=== PATIENT | female | born 1955 | race Caucasian/White ===

== ENCOUNTER 2016-11-02 20:46 | Emergency (ER) | payer OTHER | END 2016-11-02 22:39 | disposition home or self-care (01) | LOC: ER1 20:46 | DX: S80.872A Other superficial bite, left lower leg, initial encounter (principal); S70.211A Abrasion, right hip, initial encounter; E11.9 Type 2 diabetes mellitus without complications; I10 Essential (primary) hypertension; Z23 Encounter for immunization; Z79.82 Long term (current) use of aspirin; Z79.899 Other long term (current) drug therapy; W54.0XXA Bitten by dog, initial encounter | CPT/HCPCS: 82962; 90471; 90715; 99283 ==

== ENCOUNTER → 2020-08-29 | Outpatient (CLI) | payer OTHER ==
[~2020-08-29] MED LIST: ALLEGRA ALLERG180 MG PO; AMLODIPINE BESYL5 MG PO; ASPIR 8181 MG PO; ASPIRIN EC81 MG PO; BENTYL 20MG TAB20 MG PO; CALCIUM 600 +1 EAC7 PO; CYCLOBENZAPRINE10 MG OP; CYMBALTA60 MG PO; DULOXETINE HCL60 MG PO; FEXOFENADINE H180 MG PO; FISH OIL 1,0001 EAC4 PO; FLONASE 0.05% N16 GM; GLIMEPIRIDE1 MG PO; GLUCOPHAGE 500500 MG PO; GLUCOPHAGE XR500 MG PO; KLOR-CON 1010 MEQ PO; LASIX20 MG PO; LEVOTHYROXINE50 MCG PO; LISINOPRIL20 MG PO; METOPROLOL PO; METOPROLOL TART25 MG PO; MOBIC15 MG PO; NORCO 5-325 TA1 EACH PO; NORVASC 5 MG TAB5 MG PO; OMEPRAZOLE20 M1 PO; OMEPRAZOLE20 M2 PO; OMNICEF 300 MG300 MG PO; OXYBUTYNIN CHLOR5 MG PO; PERCOCET 10-321 EACH PO; POTASSIUM CHLO10 ME2 PO; PRINIVIL20 MG PO; SIMVASTATIN20 MG PO; VITAMIN D32000 UNI1 PO; ZOCOR20 MG PO; ZOFRAN ODT 4 MG4 MG PO; ZOFRAN ODT 4 MG4 MG SL
== END ==
LOC: KOH-I 10:53
DX: M25.571 Pain in right ankle and joints of right foot (principal); M79.89 Other specified soft tissue disorders; R93.6 Abnormal findings on diagnostic imaging of limbs
CPT/HCPCS: 73610

== ENCOUNTER → 2020-09-19 | Outpatient (CLI) | payer OTHER | LOC: KOH-I 09:30 | DX: M25.521 Pain in right elbow (principal) | CPT/HCPCS: 73070 ==

== ENCOUNTER → 2020-10-14 | Outpatient (CLI) | payer OTHER | LOC: KOH-I 15:05 | DX: S82.401A Unspecified fracture of shaft of right fibula, initial encounter for closed fracture (principal) | CPT/HCPCS: 73610 ==

== ENCOUNTER 2021-07-14 15:09 | Emergency (ER) | payer OTHER ==
[2021-07-14] MEDS ORDERED: IBUPROFEN600 MG PO (21:45)
== END 2021-07-14 21:51 | disposition home or self-care (01) ==
LOC: ER1 15:09
DX: R07.81 Pleurodynia (principal); R05.9 Cough, unspecified; E11.9 Type 2 diabetes mellitus without complications; I10 Essential (primary) hypertension
CPT/HCPCS: 71046; 96372; 99283; J1885

== ENCOUNTER → 2021-10-10 | Outpatient (CLI) | payer OTHER ==
[~2021-10-10] MED LIST changes: +IBUPROFEN600 MG PO
== END ==
LOC: KOH-I 10:48
DX: M79.645 Pain in left finger(s) (principal)
CPT/HCPCS: 73140

== ENCOUNTER 2021-12-19 21:30 | Emergency (ER) | payer OTHER ==
[2021-12-19 22:15] LABS: HEMOGLOBIN 13.4 gm/dl (12.3-15.3); RED BLOOD COUNT 4.81 M/UL (4.00-5.10); WHITE BLOOD COUNT 11.7 K/UL (4.5-11.0)
[2021-12-20] MEDS ORDERED: HYDROCODON-ACE1 EAC2 PO (00:17)
== END 2021-12-20 01:10 | disposition home or self-care (01) ==
LOC: ER1 21:30
PROVIDERS: Student in an Organized Health Care Education/Training Program
DX: S32.039A Unspecified fracture of third lumbar vertebra, initial encounter for closed fracture (principal); E11.9 Type 2 diabetes mellitus without complications; I10 Essential (primary) hypertension; X50.9XXA Other and unspecified overexertion or strenuous movements or postures, initial encounter
CPT/HCPCS: 72131; 80053; 85025; 96374; 96375; 99284; J1885; J2270; J2360

== ENCOUNTER → 2022-01-02 | Outpatient (CLI) | payer OTHER ==
[~2022-01-02] MED LIST changes: +HYDROCODON-ACE1 EAC2 PO
== END ==
LOC: EMI 16:29
DX: S32.030A Wedge compression fracture of third lumbar vertebra, initial encounter for closed fracture (principal); M51.26 Other intervertebral disc displacement, lumbar region; M51.27 Other intervertebral disc displacement, lumbosacral region; M47.816 Spondylosis without myelopathy or radiculopathy, lumbar region; M47.817 Spondylosis without myelopathy or radiculopathy, lumbosacral region; M48.061 Spinal stenosis, lumbar region without neurogenic claudication; M48.07 Spinal stenosis, lumbosacral region; X58.XXXA Exposure to other specified factors, initial encounter
CPT/HCPCS: 72148